=== PATIENT | female | born 1945 | race Caucasian/White ===

== ENCOUNTER 2017-08-20 21:56 | Emergency (ER) | payer OTHER ==
[~2017-08-20] VITALS: Ht 157.5 cm; Wt 49.9 kg
[2017-08-21] MEDS ORDERED: SODIUM CHLORIDE 0.9% 1,000 ML IV ONE (01:30)
[2017-08-21 02:17] LABS: Basophils # (auto) 0 uL; Eosinophils # (auto) 0 uL; Hematocrit 41.2 % (36.0-46.0); Hemoglobin 14.3 g/dL (12.2-16.2); Lymphocytes # (auto) 0.3 uL; Lymphocytes % (auto) 2.2 % (10.0-50.0); Mean Corpuscular Hemoglobin 33.8 pg (28.0-32.0); Mean Corpuscular Hgb Conc. 34.9 g/dL (32.0-36.0); Mean Corpuscular Volume 97.1 fL (80.0-100.0); Monocytes # (auto) 0.9 uL; Monocytes % (auto) 6.6 % (0.0-12.0); Neutrophils # (auto) 12.9 uL; Neutrophils % (auto) 91.2 % (37.0-80.0); Platelet Count (auto) 243 10^3/uL (140-450); Red Blood Cells 4.24 10^6/uL (4.0-5.20); Red Cell Distribution Width 13.5 % (11.8-14.3); White Blood Cell 14.1 10^3/uL (4.4-10.8)
[2017-08-21 02:41] LABS: Albumin 2.7 g/dL (3.4-5.0); Calcium 8.8 mg/dL (8.5-10.1); Potassium 3.4 mmol/L (3.5-5.1)
[2017-08-21 02:43] LABS: BUN/Creatinine Ratio 21.3
[2017-08-21 02:46] LABS: Bilirubin, Total 0.6 mg/dL (0.2-1.0); Total Protein 6.5 g/dL (6.4-8.2)
[2017-08-21] MEDS ORDERED: MORPHINE SULFATE 4 MG/ML SYR/VIAL IV ONE (03:45)
[2017-08-21] MEDS ORDERED: ONDANSETRON HCL 4 MG/2 ML VIAL IV ONE (03:45)
[2017-08-21 04:45] VITALS: BP 130/65
[2017-08-21] MEDS ORDERED: HYDROcodone-ACET 10/325MG TAB PO ONE (05:00)
== END 2017-08-21 05:27 | disposition home or self-care (01) ==
LOC: EDBD 21:56 → ER 22:02
DX: S22.080A Wedge compression fracture of T11-T12 vertebra, initial encounter for closed fracture (principal); J44.9 Chronic obstructive pulmonary disease, unspecified; I10 Essential (primary) hypertension; F17.210 Nicotine dependence, cigarettes, uncomplicated; W06.XXXA Fall from bed, initial encounter; Y93.89 Activity, other specified; Y99.8 Other external cause status; Y92.89 Other specified places as the place of occurrence of the external cause
CPT/HCPCS: 36415; 72125; 72128; 72131; 80053; 85025; 87804; 93005; 96361; 96374; 96375; 99285; J2270; J2405; J7030

== ENCOUNTER 2017-08-22 17:26 | Inpatient (IN) | payer OTHER ==
[~2017-08-22] VITALS: Ht 162.6 cm; Wt 55.1 kg
[2017-08-22 20:11] LABS: Hematocrit 38.2 % (36.0-46.0); Hemoglobin 13.3 g/dL (12.2-16.2); Mean Corpuscular Hemoglobin 33.9 pg (28.0-32.0); Mean Corpuscular Hgb Conc. 34.9 g/dL (32.0-36.0); Mean Corpuscular Volume 97.3 fL (80.0-100.0); Platelet Count (auto) 249 10^3/uL (140-450); Red Blood Cells 3.92 10^6/uL (4.0-5.20); White Blood Cell 14.3 10^3/uL (4.4-10.8)
[2017-08-22 20:16] LABS: Albumin 2.2 g/dL (3.4-5.0); Anion Gap 12 (5-15); Aspartate Aminotransferase 70 U/L (15-37); BUN/Creatinine Ratio 24.4; Band Neutrophils % (manual) 0; Basophils % (manual) 0 (0.0-2.0); Blast Cells 0; Blood Urea Nitrogen 39 mg/dL (7-18); Calcium 8.5 mg/dL (8.5-10.1); Carbon Dioxide 24 mmol/L (21-32); Chloride 85 mmol/L (98-107); Eosinophils % (manual) 0 (0-7); GFR African American 41 mL/min; GFR Non-African American 34 mL/min; Glucose 78 mg/dL (74-106); Magnesium 1.8 mg/dL (1.6-2.6); Myelocytes % 0; Potassium 3.4 mmol/L (3.5-5.1); Promyelocytes % 0; Reactive Lymphocytes 0; Sodium 121 mmol/L (136-145)
[2017-08-22 20:18] LABS: INR 1.02 (0.9-1.15); Partial Thromboplastin Time 35.7 sec (22.64-33.71); Prothrombin Time 11.1 sec (9.37-12.3)
[2017-08-22 20:28] LABS: Alanine Aminotransferase 36 U/L (13-56); Alkaline Phosphatase 64 U/L (45-117); Bilirubin, Total 0.7 mg/dL (0.2-1.0); Total Protein 6.1 g/dL (6.4-8.2)
[2017-08-22 20:42] LABS: Lymphocytes % (manual) 5 (10.0-50.0); Metamyelocytes % 1; Monocytes % (manual) 2 (0-12)
[2017-08-22] MEDS ORDERED: ACETAMINOPHEN/CODEINE#3 (300/30mg) TAB PO ONE (22:30)
[2017-08-22] MEDS ORDERED: hydrALAZINE HCL 20 MG/ML VL IV PRN (23:45)
[2017-08-22] MEDS ORDERED: NITROGLYCERIN 0.4 MG SL TAB SL PRN (23:45)
[2017-08-22] MEDS ORDERED: SODIUM CHLORIDE 0.9% 1,000 ML IV ONE (23:45)
[2017-08-22] MEDS ORDERED: MORPHINE SULFATE 4 MG/ML SYR/VIAL IV PRN ×2 (23:45)
[2017-08-22] MEDS ORDERED: ONDANSETRON HCL 4 MG/2 ML VIAL IV PRN (23:45)
[2017-08-23] VITALS (7 sets, daily range): BP systolic 85–116; BP diastolic 47–63
[2017-08-23 00:09] LABS: BUN/Creatinine Ratio 27.6; Calcium 8.4 mg/dL (8.5-10.1); Potassium 3.8 mmol/L (3.5-5.1)
[2017-08-23] MEDS ORDERED: ALBUTEROL SULF 2.5 MG/0.5ML(0.5%) NEB SOLN NEB ONE (00:15)
[2017-08-23] MEDS ORDERED: IPRATROPIUM BROM 0.5 MG/2.5ML INH SOL NEB ONE (00:15)
[2017-08-23] MEDS ORDERED: ENOXAPARIN SOD 60 MG/0.6 ML SYRINGE SC ONE (00:30)
[2017-08-23] MEDS ORDERED: LEVOFLOXACIN 500MG 100 ML IV ONE ×2 (01:41→02:15)
[2017-08-23] MEDS: LEVOFLOXACIN 500MG 100 ML IV ONE ×2 (01:41→01:59)
[2017-08-23 02:09] LABS: Urine Bacteria MANY /hpf (None Seen); Urine Blood 1+ /uL (Negative); Urine Hyaline Cast MOD /lpf (0 - 2); Urine Mucus FEW (None Seen); Urine Specific Gravity 1.018 (1.001-1.035); Urine WBC 13 /hpf (0 - 5)
[2017-08-23 02:16] LABS: Creatinine, Urine 170 mg/dL (30.0-125.0); Sodium Urine 10 mmol/L (40-220)
[2017-08-23] MEDS ORDERED: ATOR40TA52 PO (04:31)
[2017-08-23] MEDS ORDERED: AMLO10TA2 PO (04:31)
[2017-08-23] MEDS ORDERED: LISI40TA PO (04:31)
[2017-08-23] MEDS ORDERED: HYDR25TA4 PO (04:31)
[2017-08-23] MEDS ORDERED: FLUO-125 PO (04:31)
[2017-08-23 05:52] LABS: Hematocrit 38.5 % (36.0-46.0); Hemoglobin 13.3 g/dL (12.2-16.2); Mean Corpuscular Hgb Conc. 34.7 g/dL (32.0-36.0); Mean Corpuscular Volume 98.2 fL (80.0-100.0); Platelet Count (auto) 254 10^3/uL (140-450); Red Blood Cells 3.92 10^6/uL (4.0-5.20); Red Cell Distribution Width 13.8 % (11.8-14.3); White Blood Cell 16.6 10^3/uL (4.4-10.8)
[2017-08-23 05:58] LABS: BUN/Creatinine Ratio 31.1; Calcium 7.9 mg/dL (8.5-10.1); Potassium 3.1 mmol/L (3.5-5.1)
[2017-08-23 06:14] LABS: Basophils % (manual) 0 (0.0-2.0); Blast Cells 0; Metamyelocytes % 0; Myelocytes % 0; Reactive Lymphocytes 0
[2017-08-23] MEDS ORDERED: ACETAMINOPHEN 325 MG TAB PO PRN (06:15)
[2017-08-23 06:53] LABS: Band Neutrophils % (manual) 20; Eosinophils % (manual) 1 (0-7); Lymphocytes % (manual) 2 (10.0-50.0); Monocytes % (manual) 2 (0-12); Promyelocytes % 1
[2017-08-23] MEDS: ALBUTEROL SULF 2.5 MG/0.5ML(0.5%) NEB SOLN NEB PRN ×2 (09:19→13:37)
[2017-08-23] MEDS: IPRATROPIUM BROM 0.5 MG/2.5ML INH SOL NEB PRN ×2 (09:19→13:37)
[2017-08-23] MEDS ORDERED: ENOXAPARIN SOD 30 MG/0.3 ML SYRINGE SC SCH ×3 (10:00→22:00)
[2017-08-23] MEDS ORDERED: ENOXAPARIN SOD 40 MG/0.4 ML SYRINGE SC SCH (10:00)
[2017-08-23 10:03] LABS: BUN/Creatinine Ratio 33.1; Calcium 7.8 mg/dL (8.5-10.1); Potassium 3.2 mmol/L (3.5-5.1)
[2017-08-23] MEDS ORDERED: VANCOMYCIN PER PHARMACY 0 MG IV SCH (12:00)
[2017-08-23] MEDS ORDERED: LORazepam 2MG/ML-1ML VIAL IV ONE (12:00)
[2017-08-23] MEDS ORDERED: HEPARIN SODIUM (PORCINE) 5000 UNITS/ML 1ML VIAL IV ONE ×2 (12:00→18:00)
[2017-08-23] MEDS ORDERED: HEPARIN DRIP/D5W 100UNITS/ML 250 ML IV SCH ×2 (12:05→18:00)
[2017-08-23 12:32] LABS: Hematocrit 38.6 % (36.0-46.0); Hemoglobin 13.3 g/dL (12.2-16.2); Mean Corpuscular Hemoglobin 33.8 pg (28.0-32.0); Mean Corpuscular Hgb Conc. 34.4 g/dL (32.0-36.0); Mean Corpuscular Volume 98.2 fL (80.0-100.0); Platelet Count (auto) 245 10^3/uL (140-450); Red Blood Cells 3.93 10^6/uL (4.0-5.20); Red Cell Distribution Width 14.1 % (11.8-14.3)
[2017-08-23 12:41] LABS: Basophils % (manual) 0 (0.0-2.0); Blast Cells 0; Metamyelocytes % 0; Myelocytes % 0; Promyelocytes % 0; Reactive Lymphocytes 0
[2017-08-23 12:48] LABS: INR 1.02 (0.9-1.15); Partial Thromboplastin Time 41.3 sec (22.64-33.71); Prothrombin Time 11.1 sec (9.37-12.3)
[2017-08-23 12:55] LABS: BUN/Creatinine Ratio 34.1; Potassium 3.3 mmol/L (3.5-5.1)
[2017-08-23] MEDS: VANCOMYCIN 750 MG in D5W 5% 250 ML IV SCH (13:10)
[2017-08-23 13:47] LABS: Band Neutrophils % (manual) 9; Eosinophils % (manual) 1 (0-7); Lymphocytes % (manual) 2 (10.0-50.0); Monocytes % (manual) 2 (0-12)
[2017-08-23] MEDS: HYDROcodone-ACET 5/325MG TAB PO PRN (15:53)
[2017-08-23] MEDS ORDERED: LORazepam 2MG/ML-1ML VIAL IV PRN (17:45)
[2017-08-23] MEDS ORDERED: ACETTAB85 PO (19:05)
[2017-08-23] MEDS ORDERED: ALEN70TA55 PO (19:05)
[2017-08-23] MEDS ORDERED: METO-159 PO (19:05)
[2017-08-23] MEDS ORDERED: SODIUM CHLORIDE 0.9% 1,000 ML IV ONE (19:30)
[2017-08-23] MEDS: SODIUM CHLORIDE 0.9% 1,000 ML IV SCH (21:14)
[2017-08-23] MEDS: HEPARIN SODIUM (PORCINE) 5000 UNITS/ML 1ML VIAL SC SCH (21:28)
[2017-08-23] MEDS ORDERED: LEVOFLOXACIN 250MG 50 ML IV SCH (22:00)
[2017-08-23] MEDS: POTASSIUM CHL 20MEQ/100ML 100 ML IV SCH (22:48)
[2017-08-24] MEDS: POTASSIUM CHL 20MEQ/100ML 100 ML IV SCH (00:38)
[2017-08-24] MEDS: HYDROcodone-ACET 5/325MG TAB PO PRN ×4 (02:31→17:32)
[2017-08-24] MEDS: SODIUM CHLORIDE 0.9% 1,000 ML IV SCH ×2 (05:16→16:20)
[2017-08-24 06:00] VITALS: BP 110/58
[2017-08-24 06:27] LABS: Basophils # (auto) 0 uL; Eosinophils # (auto) 0.1 uL; Eosinophils % (auto) 0.3 % (0.0-7.0); Hematocrit 33.6 % (36.0-46.0); Hemoglobin 11.7 g/dL (12.2-16.2); Lymphocytes # (auto) 0.3 uL; Lymphocytes % (auto) 1.3 % (10.0-50.0); Mean Corpuscular Hemoglobin 33.8 pg (28.0-32.0); Mean Corpuscular Hgb Conc. 34.8 g/dL (32.0-36.0); Mean Corpuscular Volume 97.1 fL (80.0-100.0); Monocytes # (auto) 0.5 uL; Monocytes % (auto) 2.5 % (0.0-12.0); Neutrophils # (auto) 18.5 uL; Neutrophils % (auto) 95.9 % (37.0-80.0); Platelet Count (auto) 244 10^3/uL (140-450); Red Blood Cells 3.46 10^6/uL (4.0-5.20); Red Cell Distribution Width 14.2 % (11.8-14.3); White Blood Cell 19.3 10^3/uL (4.4-10.8)
[2017-08-24] MEDS ORDERED: LIDOCAINE 2%HCL (LOCAL ANESTH.) INJ 20ML MDV ONE (06:39)
[2017-08-24 06:40] LABS: Albumin 1.6 g/dL (3.4-5.0); Calcium 7.5 mg/dL (8.5-10.1); Potassium 3.5 mmol/L (3.5-5.1)
[2017-08-24 06:43] LABS: BUN/Creatinine Ratio 39.4
[2017-08-24 06:45] LABS: Bilirubin, Total 0.5 mg/dL (0.2-1.0); Total Protein 5.2 g/dL (6.4-8.2)
[2017-08-24] MEDS ORDERED: fentaNYL CITRATE 100 MCG/2 ML VL ONE (08:36)
[2017-08-24] MEDS ORDERED: MIDAZOLAM HCL 1MG/1ML-2 ML VIAL ONE (08:36)
[2017-08-24 09:00] VITALS: BP 113/58
[2017-08-24] MEDS ORDERED: ENOXAPARIN SOD 30 MG/0.3 ML SYRINGE SC SCH (10:00)
[2017-08-24] MEDS ORDERED: ENOXAPARIN SOD 40 MG/0.4 ML SYRINGE SC SCH (10:00)
[2017-08-24] MEDS: LEVOFLOXACIN 750MG 150 ML IV SCH (10:03)
[2017-08-24] MEDS: IPRATROPIUM BROM 0.5 MG/2.5ML INH SOL NEB PRN ×2 (10:09→19:38)
[2017-08-24] MEDS: ALBUTEROL SULF 2.5 MG/0.5ML(0.5%) NEB SOLN NEB PRN ×2 (10:09→19:38)
[2017-08-24] MEDS: HEPARIN SODIUM (PORCINE) 5000 UNITS/ML 1ML VIAL SC SCH ×2 (10:14→21:20)
[2017-08-24 11:32] LABS: Folate (Folic Acid) 7.05 ng/mL (5.38-24)
[2017-08-24] MEDS ORDERED: GADOPENTETATE DIMEGLUMINE (10MMOL/20 ML) VIAL IV ONE (14:08)
[2017-08-24] MEDS: VANCOMYCIN 750 MG in D5W 5% 250 ML IV SCH (16:20)
[2017-08-24 17:57] VITALS: BP 129/73
[2017-08-24 22:00] VITALS: BP 144/73
[2017-08-25] MEDS: SODIUM CHLORIDE 0.9% 1,000 ML IV SCH ×3 (01:16→21:56)
[2017-08-25] MEDS: HYDROcodone-ACET 5/325MG TAB PO PRN ×4 (02:28→21:57)
[2017-08-25 05:19] VITALS: BP 146/74
[2017-08-25 05:56] LABS: Hematocrit 33.3 % (36.0-46.0); Hemoglobin 11.6 g/dL (12.2-16.2); Mean Corpuscular Hemoglobin 33.9 pg (28.0-32.0); Mean Corpuscular Hgb Conc. 34.8 g/dL (32.0-36.0); Mean Corpuscular Volume 97.3 fL (80.0-100.0); Platelet Count (auto) 238 10^3/uL (140-450); Red Blood Cells 3.43 10^6/uL (4.0-5.20); Red Cell Distribution Width 14.4 % (11.8-14.3); White Blood Cell 17.3 10^3/uL (4.4-10.8)
[2017-08-25 06:17] LABS: Basophils % (manual) 0 (0.0-2.0); Blast Cells 0; Metamyelocytes % 0; Myelocytes % 0; Promyelocytes % 0; Reactive Lymphocytes 0
[2017-08-25 08:00] VITALS: BP 122/62
[2017-08-25] MEDS: IPRATROPIUM BROM 0.5 MG/2.5ML INH SOL NEB PRN (09:17)
[2017-08-25] MEDS: ALBUTEROL SULF 2.5 MG/0.5ML(0.5%) NEB SOLN NEB PRN (09:17)
[2017-08-25] MEDS: LEVOFLOXACIN 750MG 150 ML IV SCH (10:14)
[2017-08-25] MEDS: PRO-STAT 64 30ML PO SCH ×2 (10:15→21:51)
[2017-08-25] MEDS: ASCORBIC ACID 500 MG TAB PO SCH ×2 (10:15→21:50)
[2017-08-25] MEDS: MULTIPLE VITAMINS W/ MINERALS TAB PO SCH (10:15)
[2017-08-25] MEDS: HEPARIN SODIUM (PORCINE) 5000 UNITS/ML 1ML VIAL SC SCH ×2 (10:16→21:50)
[2017-08-25 10:46] LABS: Band Neutrophils % (manual) 15; Eosinophils % (manual) 1 (0-7); Lymphocytes % (manual) 3 (10.0-50.0); Monocytes % (manual) 2 (0-12)
[2017-08-25 12:00] VITALS: BP 118/65
[2017-08-25 12:04] LABS: BUN/Creatinine Ratio 31.9; Calcium 8.1 mg/dL (8.5-10.1)
[2017-08-25] MEDS ORDERED: MIDAZOLAM HCL 1MG/1ML-2 ML VIAL ONE (13:41)
[2017-08-25] MEDS ORDERED: fentaNYL CITRATE 100 MCG/2 ML VL ONE (13:42)
[2017-08-25] MEDS: BOOST PLUS 8 ounce PO SCH ×2 (14:00→21:51)
[2017-08-25] MEDS ORDERED: POTASSIUM CHL 20 Meq TABLET PO ONE (14:30)
[2017-08-25] MEDS: VANCOMYCIN 750 MG in D5W 5% 250 ML IV SCH (15:48)
[2017-08-25 17:00] VITALS: BP 122/69
[2017-08-25 22:00] VITALS: BP 127/76
[2017-08-26] MEDS: HYDROcodone-ACET 5/325MG TAB PO PRN ×2 (03:34→10:45)
[2017-08-26 03:47] VITALS: BP 122/69
[2017-08-26 05:00] VITALS: BP 133/70
[2017-08-26 06:58] LABS: Hematocrit 34.2 % (36.0-46.0); Hemoglobin 11.8 g/dL (12.2-16.2); Mean Corpuscular Hemoglobin 33.9 pg (28.0-32.0); Mean Corpuscular Hgb Conc. 34.4 g/dL (32.0-36.0); Mean Corpuscular Volume 98.5 fL (80.0-100.0); Platelet Count (auto) 221 10^3/uL (140-450); Red Blood Cells 3.47 10^6/uL (4.0-5.20); Red Cell Distribution Width 14.6 % (11.8-14.3); White Blood Cell 12.9 10^3/uL (4.4-10.8)
[2017-08-26] MEDS: SODIUM CHLORIDE 0.9% 1,000 ML IV SCH (07:30)
[2017-08-26 07:34] LABS: BUN/Creatinine Ratio 34.6; Calcium 8.1 mg/dL (8.5-10.1); Potassium 3.6 mmol/L (3.5-5.1)
[2017-08-26 07:40] LABS: Basophils % (manual) 0 (0.0-2.0); Blast Cells 0; Eosinophils % (manual) 0 (0-7); Metamyelocytes % 0; Myelocytes % 0; Promyelocytes % 0; Reactive Lymphocytes 0
[2017-08-26 07:58] LABS: Band Neutrophils % (manual) 2; Lymphocytes % (manual) 4 (10.0-50.0); Monocytes % (manual) 11 (0-12)
[2017-08-26 08:00] VITALS: BP 129/69
[2017-08-26] MEDS: BOOST PLUS 8 ounce PO SCH ×2 (08:50→14:16)
[2017-08-26] MEDS: PRO-STAT 64 30ML PO SCH (10:00)
[2017-08-26] MEDS: MULTIPLE VITAMINS W/ MINERALS TAB PO SCH (11:21)
[2017-08-26] MEDS: LEVOFLOXACIN 750MG 150 ML IV SCH (11:21)
[2017-08-26] MEDS: HEPARIN SODIUM (PORCINE) 5000 UNITS/ML 1ML VIAL SC SCH (11:22)
[2017-08-26 11:46] VITALS: BP 129/69
[2017-08-26 13:00] VITALS: BP 117/66
[2017-08-26] MEDS: ASCORBIC ACID 500 MG TAB PO SCH (13:25)
[2017-08-26] MEDS ORDERED: VANCOMYCIN 1GM/250ML 250 ML IV SCH (15:00)
[2017-08-26 16:54] VITALS: BP 145/73
== END 2017-08-26 17:45 | disposition hospice, home (50) | DRG 180 ==
LOC: EDBD 17:26 → ER 17:26 → OVERFLOW 17:27 → WEST WING 08-23 02:15
PROVIDERS: ADMIT Hospitalist; ATTEND Hospitalist
PROC: 0W9930Z Drainage of Right Pleural Cavity with Drainage Device, Percutaneous Approach (ICD-10-PCS; principal; 2017-08-25)
PROC: 0BBF3ZX Excision of Right Lower Lung Lobe, Percutaneous Approach, Diagnostic (ICD-10-PCS; 2017-08-25)
DX: C34.31 Malignant neoplasm of lower lobe, right bronchus or lung (principal); J96.21 Acute and chronic respiratory failure with hypoxia; E46 Unspecified protein-calorie malnutrition; N17.9 Acute kidney failure, unspecified; G82.20 Paraplegia, unspecified; L03.115 Cellulitis of right lower limb; E87.1 Hypo-osmolality and hyponatremia; J93.9 Pneumothorax, unspecified; M48.54XA Collapsed vertebra, not elsewhere classified, thoracic region, initial encounter for fracture; L03.116 Cellulitis of left lower limb; W19.XXXA Unspecified fall, initial encounter; E78.5 Hyperlipidemia, unspecified; E86.0 Dehydration; F02.80 Dementia in other diseases classified elsewhere, unspecified severity, without behavioral disturbance, psychotic disturbance, mood disturbance, and anxiety; G30.9 Alzheimer's disease, unspecified; F17.210 Nicotine dependence, cigarettes, uncomplicated; N39.41 Urge incontinence; M43.17 Spondylolisthesis, lumbosacral region; M48.061 Spinal stenosis, lumbar region without neurogenic claudication; G89.29 Other chronic pain; I10 Essential (primary) hypertension; J44.9 Chronic obstructive pulmonary disease, unspecified; I25.10 Atherosclerotic heart disease of native coronary artery without angina pectoris; Z90.710 Acquired absence of both cervix and uterus; Z79.899 Other long term (current) drug therapy; Z81.8 Family history of other mental and behavioral disorders; Z82.0 Family history of epilepsy and other diseases of the nervous system; Z68.20 Body mass index [BMI] 20.0-20.9, adult; Y93.89 Activity, other specified; Y92.89 Other specified places as the place of occurrence of the external cause; Y99.8 Other external cause status
CPT/HCPCS: 10022; 32405; 32557; 36415; 36600; 70553; 71045; 71250; 72148; 73502; 77012; 78582; 80048; 80053; 80202; 81001; 82570; 82607; 82746; 82805; 83605; 83735; 83880; 83930; 84146; 84300; 84443; 84484; 85007; 85025; 85027; 85379; 85610; 85730; 87040; 87077; 87086; 87186; 87205; 93005; 93970; 94640; 94761; 95819; 96372; 96374; A4223; C1729; J1956; J2250; J3480; J7060

== ENCOUNTER 2022-07-11 11:56 | Observation (INO) | payer OTHER ==
[~2022-07-11] VITALS: Ht 149.9 cm; Wt 50.0 kg
[~2022-07-11 11:56] MED LIST: ACET-1603 PO; ALEN70TA74 PO; ATOR40TA52 PO; FLUO-125 PO; METO-159 PO
[2022-07-11] MEDS ORDERED: SODIUM CHLORIDE 0.9% 1,000 ML IV ONE (12:30)
[2022-07-11] MEDS ORDERED: methylPREDNISolone SOD SUCC 125 MG/2 ML VL IV ONE (12:30)
[2022-07-11] MEDS ORDERED: IPRATROPIUM BROM 0.5 MG/2.5ML INH SOL NEB ONE ×3 (12:30→21:15)
[2022-07-11] MEDS ORDERED: ALBUTEROL SULF 2.5 MG/0.5ML(0.5%) NEB SOLN NEB ONE ×3 (12:30→21:15)
[2022-07-11 13:28] LABS: Albumin 3.1 g/dL (3.4-5.0); Magnesium 2.1 mg/dL (1.6-2.6); Potassium 4.1 mmol/L (3.5-5.1)
[2022-07-11 13:32] LABS: BUN/Creatinine Ratio 16.3; Bilirubin, Total 0.8 mg/dL (0.2-1.0); Total Protein 7.1 g/dL (6.4-8.2)
[2022-07-11 13:43] LABS: Basophils # (auto) 0 10 ^3/uL (0-0.2); Basophils % (auto) 0.3 % (0.0-2.0); Eosinophils # (auto) 0 10 ^3/uL (0-0.8); Eosinophils % (auto) 0.1 % (0.0-7.0); Lymphocytes # (auto) 1.2 10 ^3/uL (0.4-5.4)
[2022-07-11 13:45] LABS: Hematocrit 40.8 % (36.0-46.0); Hemoglobin 14.4 g/dL (12.2-16.2); Lymphocytes % (auto) 12.1 % (10.0-50.0); Mean Corpuscular Hemoglobin 35.2 pg (28.0-32.0); Mean Corpuscular Hgb Conc. 35.3 g/dL (32.0-36.0); Mean Corpuscular Volume 99.9 fL (80.0-100.0); Monocytes # (auto) 1.1 10 ^3/uL (0-1.3); Monocytes % (auto) 10.5 % (0.0-12.0); Neutrophils # (auto) 7.7 10 ^3/uL (1.6-8.6); Red Blood Cells 4.08 10^6/uL (4.0-5.20); White Blood Cell 10.1 10^3/uL (4.4-10.8)
[2022-07-11 15:13] LABS: Urine Amorphous Crystal FEW /hpf (None Seen); Urine Bacteria NONE SEEN /hpf (None Seen); Urine Blood Negative /uL (Negative); Urine Hyaline Cast MOD /lpf (0 - 2); Urine Specific Gravity 1.022 (1.001-1.035); Urine WBC 13 /hpf (0 - 5)
[2022-07-11] MEDS ORDERED: cefTRIAXone 1GM/50ML D5W 50 ML IV ONE (16:15)
[2022-07-11] MEDS ORDERED: ALBUTEROL MEDNEB 2.5 mg/3ml NEB ONE (21:22)
[2022-07-12] MEDS ORDERED: IPRATROPIUM BROM 0.5 MG/2.5ML INH SOL NEB PRN (01:45)
[2022-07-12] MEDS ORDERED: MORPHINE SULFATE INJ 2 MG/ml SYRG IV PRN ×2 (01:45)
[2022-07-12] MEDS ORDERED: NITROGLYCERIN 0.4 MG SL TAB SL PRN (01:45)
[2022-07-12] MEDS ORDERED: ONDANSETRON HCL 4 MG/2 ML VIAL IV PRN (01:45)
[2022-07-12 02:35] VITALS: BP 119/62
[2022-07-12] MEDS: methylPREDNISolone SOD SUCC 125 MG/2 ML VL IV SCH ×3 (02:43→14:43)
[2022-07-12] MEDS ORDERED: levoFLOXacin 500MG 100 ML IV ONE (03:00)
[2022-07-12 06:22] LABS: Basophils # (auto) 0 10 ^3/uL (0-0.2); Eosinophils # (auto) 0 10 ^3/uL (0-0.8); Lymphocytes # (auto) 0.4 10 ^3/uL (0.4-5.4); Monocytes # (auto) 0.4 10 ^3/uL (0-1.3); Neutrophils # (auto) 5.3 10 ^3/uL (1.6-8.6)
[2022-07-12 06:24] LABS: Calcium 8.7 mg/dL (8.5-10.1); Potassium 3.5 mmol/L (3.5-5.1)
[2022-07-12 06:25] LABS: Hemoglobin 12.9 g/dL (12.2-16.2); Lymphocytes % (auto) 6.5 % (10.0-50.0); Mean Corpuscular Hemoglobin 34.7 pg (28.0-32.0); Mean Corpuscular Hgb Conc. 34.8 g/dL (32.0-36.0); Mean Corpuscular Volume 99.8 fL (80.0-100.0); Monocytes % (auto) 5.8 % (0.0-12.0); Neutrophils % (auto) 87.7 % (37.0-80.0); Red Blood Cells 3.71 10^6/uL (4.0-5.20); Red Cell Distribution Width 13.7 % (11.8-14.3)
[2022-07-12] MEDS ORDERED: LEVO500T31 PO (07:07)
[2022-07-12] MEDS ORDERED: METH4PAK PO (07:07)
[2022-07-12] MEDS ORDERED: ALBU108A5 IN (07:07)
[2022-07-12] MEDS ORDERED: ENOXAPARIN SOD 30 MG/0.3 ML SYRINGE SC SCH (10:00)
[2022-07-12] MEDS ORDERED: ALBU0.084 NEB (10:52)
[2022-07-12 14:00] VITALS: BP 146/87
[2022-07-13] MEDS ORDERED: levoFLOXacin 250MG 50 ML IV SCH (10:00)
== END 2022-07-12 17:15 | disposition home or self-care (01) ==
LOC: ER 11:56 → EDBD 11:56 → TELE 17:15
PROVIDERS: ADMIT Hospitalist; ATTEND Internal Medicine
DX: J18.9 Pneumonia, unspecified organism (principal); Z20.822 Contact with and (suspected) exposure to COVID-19; J44.1 Chronic obstructive pulmonary disease with (acute) exacerbation; E44.1 Mild protein-calorie malnutrition; F32.A Depression, unspecified; I12.9 Hypertensive chronic kidney disease with stage 1 through stage 4 chronic kidney disease, or unspecified chronic kidney disease; N18.30 Chronic kidney disease, stage 3 unspecified; C34.90 Malignant neoplasm of unspecified part of unspecified bronchus or lung; E78.5 Hyperlipidemia, unspecified; Z85.118 Personal history of other malignant neoplasm of bronchus and lung; Z79.899 Other long term (current) drug therapy; Z98.890 Other specified postprocedural states; Z90.710 Acquired absence of both cervix and uterus; Z87.891 Personal history of nicotine dependence; Z68.22 Body mass index [BMI] 22.0-22.9, adult
CPT/HCPCS: 36415; 36600; 71046; 80048; 80053; 81001; 82805; 83735; 84484; 85025; 87040; 87426; 87804; 93005; 94640; 96361; 96365; 96366; 96367; 96372; 96375; 96376; 99285; G0378; J0696; J1650; J1956; J2930; J7644

== ENCOUNTER 2023-04-20 18:09 | Emergency (ER) | payer OTHER ==
[~2023-04-20] VITALS: Ht 152.4 cm; Wt 130.0 kg
[~2023-04-20 18:09] MED LIST changes: +ALBU0.084 NEB; +ALBU108A5 IN; +LEVO500T31 PO; +METH4PAK PO
[2023-04-20 19:07] LABS: Basophils # (auto) 0.1 10 ^3/uL (0-0.2); Basophils % (auto) 0.8 % (0.0-2.0); Eosinophils # (auto) 0.2 10 ^3/uL (0-0.8); Eosinophils % (auto) 2.1 % (0.0-7.0); Hematocrit 43.5 % (36.0-46.0); Hemoglobin 14.7 g/dL (12.2-16.2); Lymphocytes # (auto) 2.7 10 ^3/uL (0.4-5.4); Mean Corpuscular Hemoglobin 33.1 pg (28.0-32.0); Mean Corpuscular Hgb Conc. 33.7 g/dL (32.0-36.0); Mean Corpuscular Volume 98.1 fL (80.0-100.0); Monocytes # (auto) 0.9 10 ^3/uL (0-1.3); Monocytes % (auto) 8.4 % (0.0-12.0); Neutrophils % (auto) 63.7 % (37.0-80.0); Nucleated Red Blood Cells % 0.1 %; Red Blood Cells 4.43 10^6/uL (4.0-5.20); Red Cell Distribution Width 14.7 % (11.8-14.3)
[2023-04-20 19:37] LABS: Alanine Aminotransferase 13 U/L (7-40); Albumin 4.1 g/dL (3.2-4.8); Alkaline Phosphatase 89 U/L (46-116); Anion Gap 8 (5-15); Aspartate Aminotransferase 12 U/L (13-40); BUN/Creatinine Ratio 11.2 (10.0-20.0); Bilirubin, Total 0.6 mg/dL (0.2-1.0); Blood Urea Nitrogen 14 mg/dL (9-23); Calcium 9.3 mg/dL (8.5-10.1); Carbon Dioxide 23 mmol/L (20-30); Chloride 102 mmol/L (98-107); Glucose 92 mg/dL (74-106); Potassium 4.2 mmol/L (3.5-5.1); Sodium 133 mmol/L (136-145); Total Protein 6.6 g/dL (5.7-8.2)
[2023-04-20 19:56] LABS: Magnesium 1.9 mg/dL (1.6-2.6)
[2023-04-20 19:57] VITALS: BP 135/92; TEMP 98.5
[2023-04-20 19:59] VITALS: PULSE 84; RESP 20; O2SAT 97
== END 2023-04-20 22:35 | disposition left against medical advice (07) ==
LOC: EDBD 18:09 → ER 18:09
DX: I16.0 Hypertensive urgency (principal); R93.1 Abnormal findings on diagnostic imaging of heart and coronary circulation; J44.9 Chronic obstructive pulmonary disease, unspecified; F32.9 Major depressive disorder, single episode, unspecified; E78.5 Hyperlipidemia, unspecified; F10.90 Alcohol use, unspecified, uncomplicated; Z85.9 Personal history of malignant neoplasm, unspecified; Z90.710 Acquired absence of both cervix and uterus; Z87.891 Personal history of nicotine dependence; Z88.0 Allergy status to penicillin; Z79.1 Long term (current) use of non-steroidal anti-inflammatories (NSAID); Z79.899 Other long term (current) drug therapy; Y90.0 Blood alcohol level of less than 20 mg/100 ml
CPT/HCPCS: 36415; 80053; 83735; 84484; 85025; 93005

== ENCOUNTER 2024-03-08 09:39 | Inpatient (IN) | payer OTHER ==
[~2024-03-08] VITALS: Ht 157.5 cm; Wt 67.0 kg
[2024-03-08 09:40] VITALS: PULSE 30; RESP 6; O2SAT 98
[2024-03-08] MEDS: MIDAZOLAM HCL 2MG/2ML 2ml VIAL (1mg/ml) IV ONE (09:42)
[2024-03-08] MEDS: ETOMIDATE (2MG/ML) 20ML VIAL IV ONE ×2 (09:43→09:44)
[2024-03-08] MEDS: MIDAZOLAM HCL 2MG/2ML 2ml VIAL (1mg/ml) ONE (09:45)
[2024-03-08] MEDS: MIDAZOLAM DRIP 50 mg/50mL 50 ML IV SCH (10:00)
[2024-03-08] MEDS: PROPOFOL 100 ML IV ONE (10:03)
[2024-03-08] MEDS: DOPamine 1600MCG/ML D5W 250 ML IV ONE ×2 (10:03→10:05)
[2024-03-08] MEDS: NOREPINEPHRINE 8 MG/250ML KIT 250 ML IV SCH (10:15)
[2024-03-08] MEDS: MIDAZOLAM DRIP 50 mg/50mL 50 ML IV ONE (10:23)
[2024-03-08] MEDS: NOREPINEPHRINE 8 MG/250ML KIT 250 ML IV ONE (10:23)
[2024-03-08] MEDS: PROPOFOL 100 ML IV SCH (10:24)
[2024-03-08 11:28] LABS: Platelet Count (auto) 144 10^3/uL (140-450)
[2024-03-08 11:30] LABS: Hematocrit 35.3 % (36.0-46.0); Hemoglobin 11.1 g/dL (12.2-16.2); Mean Corpuscular Hgb Conc. 31.5 g/dL (32.0-36.0); Mean Corpuscular Volume 104.8 fL (80.0-100.0); Red Blood Cells 3.37 10^6/uL (4.0-5.20); White Blood Cell 17.2 10^3/uL (4.4-10.8)
[2024-03-08] MEDS: ISOPROTERENOL HCL INJECTION 1 MG in D5W 5% 250 ML IV SCH ×2 (11:35→13:45)
[2024-03-08 11:36] LABS: Basophils % (manual) 0 (0.0-2.0); Blast Cells 0; Metamyelocytes % 0; Promyelocytes % 0; Reactive Lymphocytes 0
[2024-03-08 12:03] LABS: Band Neutrophils % (manual) 4; Eosinophils % (manual) 1 (0-7); Lymphocytes % (manual) 32 (10.0-50.0); Monocytes % (manual) 6 (0-12); Myelocytes % 2; Platelet Estimate Adequate
[2024-03-08 12:15] LABS: Base Excess -16.2 mmol/L (-2.0-3.0)
[2024-03-08] MEDS: cefTRIAXone 1GM/50ML D5W 50 ML IV ONE (12:38)
[2024-03-08] MEDS: SODIUM BICARB 8.4% 50Meq/50ml SYR Vial IV ONE (12:38)
[2024-03-08] MEDS: AZITHROMYCIN 500MG/ 250ML 250 ML IV ONE (12:39)
[2024-03-08] MEDS: SODIUM CHLORIDE 0.9% 1,000 ML IV ONE ×2 (12:39→23:56)
[2024-03-08 12:45] LABS: Chloride 111 mmol/L (98-107); Sodium 137 mmol/L (136-145)
[2024-03-08 12:47] LABS: Anion Gap 13 (5-15); Carbon Dioxide 13 mmol/L (20-30)
[2024-03-08 12:48] LABS: Calcium 7.5 mg/dL (8.7-10.4)
[2024-03-08 12:51] LABS: Potassium 5.5 mmol/L (3.5-5.1)
[2024-03-08 12:53] LABS: Alkaline Phosphatase 114 U/L (46-116); Glucose 103 mg/dL (74-106)
[2024-03-08 12:55] LABS: Albumin 2.9 g/dL (3.2-4.8); Aspartate Aminotransferase 759 U/L (13-40); Bilirubin, Total 0.7 mg/dL (0.2-1.0); Total Protein 4.9 g/dL (5.7-8.2)
[2024-03-08 13:54] LABS: Blood Urea Nitrogen 15 mg/dL (9-23)
[2024-03-08 13:55] LABS: Alanine Aminotransferase 474 U/L (7-40)
[2024-03-08 14:39] LABS: Base Excess -8.2 mmol/L (-2.0-3.0)
[2024-03-08] MEDS: fentaNYL Drip 2500mCg/250mlNS 250 ML IV SCH (16:29)
[2024-03-08 18:37] LABS: Urine Amorphous Crystal FEW /hpf (None Seen); Urine Bacteria FEW /hpf (None Seen); Urine Blood 3+ /uL (Negative); Urine Clarity Turbid (Clear); Urine Color Colorless (Yellow); Urine Mucus FEW (None Seen); Urine Protein, UAD 1+ (Negative); Urine Specific Gravity 1.009 (1.001-1.035); Urine Urobilinogen Normal (Negative); Urine WBC 31 /hpf (0 - 5)
[2024-03-08 21:00] VITALS: PULSE 55; RESP 18; O2SAT 98
[2024-03-08] MEDS ORDERED: VANCOMYCIN 1GM/200ML 200 ML IV ONE (23:00)
[2024-03-08 23:10] VITALS: PULSE 66; RESP 20; O2SAT 96
[2024-03-08] MEDS ORDERED: MORPHINE SULFATE INJ 2 MG/ml SYRG IV PRN ×2 (23:15)
[2024-03-08] MEDS ORDERED: VANCOMYCIN PER PHARMACY 0 MG IV SCH (23:15)
[2024-03-08] MEDS ORDERED: NITROGLYCERIN 0.4 MG SL TAB SL PRN (23:15)
[2024-03-08] MEDS ORDERED: ONDANSETRON HCL 4 MG/2 ML VIAL IV PRN (23:15)
[2024-03-08] MEDS: MEROPENEM 500MG IVPB 50 ML IV SCH (23:30)
[2024-03-08 23:39] LABS: INR 1.3 (0.9-1.15); Partial Thromboplastin Time 29.6 SEC (24.5-34.5); Prothrombin Time 13.5 sec (9.3-11.8)
[2024-03-08] MEDS: SODIUM CHLORIDE 0.9% 1,000 ML IV SCH (23:56)
[2024-03-08 23:59] LABS: Alanine Aminotransferase 521 U/L (7-40); Albumin 3.2 g/dL (3.2-4.8); Alkaline Phosphatase 108 U/L (46-116); Anion Gap 8 (5-15); BUN/Creatinine Ratio 9.6 (10.0-20.0); Blood Urea Nitrogen 19 mg/dL (9-23); Calcium 7.1 mg/dL (8.7-10.4); Carbon Dioxide 22 mmol/L (20-30); Chloride 107 mmol/L (98-107); Glucose 99 mg/dL (74-106); Potassium 4.7 mmol/L (3.5-5.1); Sodium 137 mmol/L (136-145)
[2024-03-09] VITALS (89 sets, daily range): BP systolic 85–141; BP diastolic 43–76; PULSE 62–97; RESP 10–31; TEMP 96.4–99.9; O2SAT 90–100
[2024-03-09] LABS: Bilirubin, Total 0.3 mg/dL (0.2-1.0); Total Protein 5.1 g/dL (5.7-8.2)
[2024-03-09] MEDS: VANCOMYCIN 1GM/200ML 200 ML IV ONE (00:02)
[2024-03-09 00:10] LABS: Aspartate Aminotransferase 1004 U/L (13-40)
[2024-03-09] MEDS: IPRATROPIUM BROM 0.5 MG/2.5ML INH SOL NEB SCH (02:21)
[2024-03-09] MEDS: ALBUTEROL SULF 2.5 MG/0.5ML(0.5%) NEB SOLN NEB SCH (02:21)
[2024-03-09 04:12] LABS: Basophils # (auto) 0.1 10 ^3/uL (0-0.2); Basophils % (auto) 0.4 % (0.0-2.0); Eosinophils # (auto) 0 10 ^3/uL (0-0.8); Eosinophils % (auto) 0.3 % (0.0-7.0); Hematocrit 31.5 % (36.0-46.0); Hemoglobin 10.7 g/dL (12.2-16.2); Lymphocytes # (auto) 2.5 10 ^3/uL (0.4-5.4); Lymphocytes % (auto) 18.2 % (10.0-50.0); Mean Corpuscular Hemoglobin 33.2 pg (28.0-32.0); Mean Corpuscular Hgb Conc. 33.9 g/dL (32.0-36.0); Mean Corpuscular Volume 97.9 fL (80.0-100.0); Monocytes # (auto) 0.5 10 ^3/uL (0-1.3); Monocytes % (auto) 3.7 % (0.0-12.0); Neutrophils # (auto) 10.5 10 ^3/uL (1.6-8.6); Neutrophils % (auto) 77.4 % (37.0-80.0); Nucleated Red Blood Cells % 0.2 %; Platelet Count (auto) 123 10^3/uL (140-450); Red Blood Cells 3.22 10^6/uL (4.0-5.20); White Blood Cell 13.5 10^3/uL (4.4-10.8)
[2024-03-09 04:30] LABS: Alanine Aminotransferase 459 U/L (7-40); Alkaline Phosphatase 97 U/L (46-116); Anion Gap 5 (5-15); BUN/Creatinine Ratio 7.5 (10.0-20.0); Blood Urea Nitrogen 14 mg/dL (9-23); Calcium 6.8 mg/dL (8.7-10.4); Carbon Dioxide 22 mmol/L (20-30); Chloride 110 mmol/L (98-107); Glucose 98 mg/dL (74-106); Potassium 4.2 mmol/L (3.5-5.1); Sodium 137 mmol/L (136-145)
[2024-03-09 04:31] LABS: Albumin 2.9 g/dL (3.2-4.8); Aspartate Aminotransferase 817 U/L (13-40)
[2024-03-09 04:32] LABS: Bilirubin, Total 0.3 mg/dL (0.2-1.0); Total Protein 4.8 g/dL (5.7-8.2)
[2024-03-09] MEDS ORDERED: MEROPENEM 1GM IVPB 50 ML IV SCH (06:00)
[2024-03-09] MEDS: ENOXAPARIN SOD 40 MG/0.4 ML SYRINGE SC SCH (10:00)
[2024-03-09] MEDS: PANTOPRAZOLE 40 MG/10 ML VIAL INJ IV SCH (10:56)
[2024-03-09] MEDS ORDERED: LISI20TA56 PO (11:26)
[2024-03-09] MEDS ORDERED: DILT-29 PO (11:26)
[2024-03-09] MEDS ORDERED: SOLI5TAB42 PO (11:26)
[2024-03-09] MEDS ORDERED: BUDE1AER6 IN (11:26)
[2024-03-10] VITALS (111 sets, daily range): BP systolic 70–131; BP diastolic 23–64; PULSE 75–100; RESP 13–24; TEMP 96.8–98.4; O2SAT 93–100
[2024-03-10 05:30] LABS: Basophils # (auto) 0 10 ^3/uL (0-0.2); Eosinophils # (auto) 0.1 10 ^3/uL (0-0.8); Hemoglobin 10.3 g/dL (12.2-16.2); Lymphocytes # (auto) 1.3 10 ^3/uL (0.4-5.4); Mean Corpuscular Volume 98.8 fL (80.0-100.0); Monocytes # (auto) 0.5 10 ^3/uL (0-1.3); Neutrophils # (auto) 7.5 10 ^3/uL (1.6-8.6); White Blood Cell 9.4 10^3/uL (4.4-10.8)
[2024-03-10 05:32] LABS: Basophils % (auto) 0.4 % (0.0-2.0); Eosinophils % (auto) 1.1 % (0.0-7.0); Hematocrit 29.6 % (36.0-46.0); Mean Corpuscular Hemoglobin 34.4 pg (28.0-32.0); Mean Corpuscular Hgb Conc. 34.8 g/dL (32.0-36.0); Monocytes % (auto) 5.2 % (0.0-12.0); Neutrophils % (auto) 79.3 % (37.0-80.0); Nucleated Red Blood Cells % 0.1 %; Platelet Count (auto) 99 10^3/uL (140-450); Red Blood Cells 2.99 10^6/uL (4.0-5.20); Red Cell Distribution Width 14.3 % (11.8-14.3)
[2024-03-10 05:48] LABS: Alanine Aminotransferase 328 U/L (7-40); Albumin 2.8 g/dL (3.2-4.8); Alkaline Phosphatase 98 U/L (46-116); Anion Gap 7 (5-15); Aspartate Aminotransferase 250 U/L (13-40); BUN/Creatinine Ratio 12.5 (10.0-20.0); Blood Urea Nitrogen 18 mg/dL (9-23); Calcium 7.4 mg/dL (8.7-10.4); Carbon Dioxide 20 mmol/L (20-30); Chloride 114 mmol/L (98-107); Glucose 90 mg/dL (74-106); Potassium 3.9 mmol/L (3.5-5.1); Sodium 141 mmol/L (136-145); Uric Acid 4.3 mg/dL (3.1-7.8)
[2024-03-10 05:49] LABS: Bilirubin, Total 0.4 mg/dL (0.2-1.0); Creatine Kinase IFCC 90 U/L (34-145); Phosphorus 3.5 mg/dL (2.4-5.1); Total Protein 4.8 g/dL (5.7-8.2)
[2024-03-10 08:49] LABS: Base Excess -6.7 mmol/L (-2.0-3.0)
[2024-03-10] MEDS: VANCOMYCIN 1GM/200ML 200 ML IV ONE (10:43)
[2024-03-10 13:26] LABS: Protein, Urine 99.5 mg/dL (0.0-11.9)
[2024-03-10 13:28] LABS: Amphetamine Screen, Urine Neg (NEGATIVE); Barbiturate Scree,Urine Neg (NEGATIVE); Benzodiazephine Screen, Urine Pos (NEGATIVE); Cannabinoid Screen, Urine Neg (NEGATIVE); Cocaine Screen, Urine Neg (NEGATIVE); Opiate Scree,Urine Neg (NEGATIVE); Phencyclidine Screen, Urine Neg (NEGATIVE)
[2024-03-10 13:29] LABS: Creatinine, Urine 116.64 mg/dL (30.0-125.0)
[2024-03-10 13:35] LABS: Urine Bacteria FEW /hpf (None Seen); Urine Blood 3+ /uL (Negative); Urine Protein, UAD 1+ (Negative); Urine Specific Gravity 1.016 (1.001-1.035); Urine Urobilinogen Normal (Negative); Urine WBC 41 /hpf (0 - 5); Urine WBC Clumps PRESENT /hpf (None Seen)
[2024-03-10 13:37] LABS: Urine Clarity TURBID (Clear); Urine Color Yellow (Yellow)
[2024-03-10] MEDS: NOREPINEPHRINE 8 MG/250ML KIT 250 ML IV SCH (18:00)
[2024-03-11] VITALS (104 sets, daily range): BP systolic 93–159; BP diastolic 43–79; PULSE 68–100; RESP 18–24; TEMP 96.6–99; O2SAT 94–100
[2024-03-11 04:19] LABS: Basophils # (auto) 0 10 ^3/uL (0-0.2); Monocytes # (auto) 0.5 10 ^3/uL (0-1.3); Monocytes % (auto) 7.1 % (0.0-12.0); Neutrophils # (auto) 4.8 10 ^3/uL (1.6-8.6)
[2024-03-11 04:20] LABS: Basophils % (auto) 0.4 % (0.0-2.0); Eosinophils # (auto) 0.1 10 ^3/uL (0-0.8); Eosinophils % (auto) 2.2 % (0.0-7.0); Hematocrit 28.3 % (36.0-46.0); Hemoglobin 9.7 g/dL (12.2-16.2); Lymphocytes # (auto) 1.1 10 ^3/uL (0.4-5.4); Lymphocytes % (auto) 16.6 % (10.0-50.0); Mean Corpuscular Hgb Conc. 34.4 g/dL (32.0-36.0); Mean Corpuscular Volume 98.8 fL (80.0-100.0); Neutrophils % (auto) 73.7 % (37.0-80.0); Nucleated Red Blood Cells % 0.1 %; Red Blood Cells 2.86 10^6/uL (4.0-5.20); White Blood Cell 6.4 10^3/uL (4.4-10.8)
[2024-03-11 04:27] LABS: Alanine Aminotransferase 226 U/L (7-40); Albumin 2.5 g/dL (3.2-4.8); Alkaline Phosphatase 91 U/L (46-116); Anion Gap 6 (5-15); Aspartate Aminotransferase 110 U/L (13-40); BUN/Creatinine Ratio 13.9 (10.0-20.0); Bilirubin, Total 0.4 mg/dL (0.2-1.0); Blood Urea Nitrogen 16 mg/dL (9-23); Calcium 7.8 mg/dL (8.7-10.4); Carbon Dioxide 19 mmol/L (20-30); Chloride 118 mmol/L (98-107); Glucose 86 mg/dL (74-106); Potassium 3.4 mmol/L (3.5-5.1); Sodium 143 mmol/L (136-145); Total Protein 4.3 g/dL (5.7-8.2)
[2024-03-11 05:23] LABS: Platelet Count (auto) 122 10^3/uL (140-450)
[2024-03-11 05:24] LABS: Large Platelets FEW; Platelet Estimate Decrea
[2024-03-11 07:29] LABS: Base Excess -8.6 mmol/L (-2.0-3.0)
[2024-03-11] MEDS: POTASSIUM CHL 20MEQ/100ML 100 ML IV ONE (10:10)
[2024-03-11] MEDS: NOREPINEPHRINE 8 MG/250ML KIT 250 ML IV SCH (10:45)
[2024-03-11] MEDS: methylPREDNISolone SOD SUCC 125 MG/2 ML VL IV ONE (10:55)
[2024-03-11] MEDS: MIDODRINE HCL 10 MG TAB PO SCH (12:21)
[2024-03-11] MEDS: Glucerna 1.2 Cal 1Liter BOTTLE GT SCH (17:06)
[2024-03-11] MEDS: methylPREDNISolone SOD SUCC 125 MG/2 ML VL IV SCH (21:39)
[2024-03-12] VITALS (109 sets, daily range): BP systolic 99–171; BP diastolic 49–82; PULSE 88–118; RESP 15–34; TEMP 93.4–99.1; O2SAT 93–100
[2024-03-12 04:04] LABS: Basophils # (auto) 0 10 ^3/uL (0-0.2); Basophils % (auto) 0.1 % (0.0-2.0); Eosinophils # (auto) 0 10 ^3/uL (0-0.8); Lymphocytes # (auto) 0.2 10 ^3/uL (0.4-5.4); Mean Corpuscular Volume 99.3 fL (80.0-100.0); Monocytes # (auto) 0.1 10 ^3/uL (0-1.3); Neutrophils # (auto) 3.9 10 ^3/uL (1.6-8.6); White Blood Cell 4.3 10^3/uL (4.4-10.8)
[2024-03-12 04:09] LABS: Hematocrit 31.4 % (36.0-46.0); Hemoglobin 10.9 g/dL (12.2-16.2); Lymphocytes % (auto) 5.2 % (10.0-50.0); Mean Corpuscular Hemoglobin 34.3 pg (28.0-32.0); Mean Corpuscular Hgb Conc. 34.5 g/dL (32.0-36.0); Monocytes % (auto) 2.1 % (0.0-12.0); Neutrophils % (auto) 92.6 % (37.0-80.0); Nucleated Red Blood Cells % 0.1 %; Red Blood Cells 3.16 10^6/uL (4.0-5.20); Red Cell Distribution Width 14.8 % (11.8-14.3)
[2024-03-12 04:28] LABS: Alanine Aminotransferase 185 U/L (7-40); Albumin 2.7 g/dL (3.2-4.8); Alkaline Phosphatase 96 U/L (46-116); Anion Gap 7 (5-15); Aspartate Aminotransferase 56 U/L (13-40); BUN/Creatinine Ratio 15.5 (10.0-20.0); Bilirubin, Total 0.3 mg/dL (0.2-1.0); Blood Urea Nitrogen 15 mg/dL (9-23); Calcium 8.4 mg/dL (8.7-10.4); Carbon Dioxide 17 mmol/L (20-30); Chloride 119 mmol/L (98-107); Glucose 122 mg/dL (74-106); Potassium 3.9 mmol/L (3.5-5.1); Sodium 143 mmol/L (136-145); Total Protein 4.8 g/dL (5.7-8.2)
[2024-03-12 05:21] LABS: Platelet Count (auto) 66 10^3/uL (140-450)
[2024-03-12 05:22] LABS: Platelet Estimate Decreased
[2024-03-12 06:55] LABS: Base Excess -8.5 mmol/L (-2.0-3.0)
[2024-03-12] MEDS: LACTATED RINGER'S 1,000 ML IV SCH (11:27)
[2024-03-12] MEDS: MEROPENEM 1GM IVPB 50 ML IV SCH (11:28)
[2024-03-12] MEDS: VANCOMYCIN 1GM/200ML 200 ML IV ONE (11:28)
[2024-03-12 11:35] LABS: INR 1.06 (0.9-1.15); Partial Thromboplastin Time 36.1 SEC (24.5-34.5); Prothrombin Time 11.2 sec (9.3-11.8)
[2024-03-12 14:26] LABS: Base Excess -7.6 mmol/L (-2.0-3.0)
[2024-03-12] MEDS: hydrALAZINE HCL 20 MG/ML VL IV PRN (22:57)
[2024-03-13] VITALS (104 sets, daily range): BP systolic 98–216; BP diastolic 46–128; PULSE 88–149; RESP 12–37; TEMP 97.6–98.2; O2SAT 95–100
[2024-03-13] MEDS: MORPHINE SULFATE INJ 2 MG/ml SYRG IV PRN (00:54)
[2024-03-13 03:50] LABS: Basophils # (auto) 0 10 ^3/uL (0-0.2); Eosinophils # (auto) 0 10 ^3/uL (0-0.8); Hematocrit 31.5 % (36.0-46.0); Hemoglobin 10.6 g/dL (12.2-16.2); Lymphocytes # (auto) 0.3 10 ^3/uL (0.4-5.4); Lymphocytes % (auto) 3.5 % (10.0-50.0); Mean Corpuscular Hemoglobin 33.7 pg (28.0-32.0); Mean Corpuscular Hgb Conc. 33.7 g/dL (32.0-36.0); Mean Corpuscular Volume 99.8 fL (80.0-100.0); Monocytes # (auto) 0.3 10 ^3/uL (0-1.3); Monocytes % (auto) 3.9 % (0.0-12.0); Neutrophils # (auto) 8.1 10 ^3/uL (1.6-8.6); Neutrophils % (auto) 92.6 % (37.0-80.0); Nucleated Red Blood Cells % 0.1 %; Platelet Count (auto) 77 10^3/uL (140-450); Red Blood Cells 3.16 10^6/uL (4.0-5.20); Red Cell Distribution Width 14.9 % (11.8-14.3); White Blood Cell 8.8 10^3/uL (4.4-10.8)
[2024-03-13 04:10] LABS: Alanine Aminotransferase 133 U/L (7-40); Albumin 2.7 g/dL (3.2-4.8); Alkaline Phosphatase 84 U/L (46-116); Anion Gap 9 (5-15); Aspartate Aminotransferase 27 U/L (13-40); BUN/Creatinine Ratio 18.4 (10.0-20.0); Bilirubin, Total 0.3 mg/dL (0.2-1.0); Blood Urea Nitrogen 19 mg/dL (9-23); Calcium 8.8 mg/dL (8.7-10.4); Carbon Dioxide 17 mmol/L (20-30); Chloride 119 mmol/L (98-107); Glucose 105 mg/dL (74-106); Potassium 3.7 mmol/L (3.5-5.1); Sodium 145 mmol/L (136-145); Total Protein 4.7 g/dL (5.7-8.2)
[2024-03-13 07:05] LABS: Base Excess -6.2 mmol/L (-2.0-3.0)
[2024-03-13] MEDS: METOPROLOL TARTRATE 1MG/1ML-5ML VIAL IV PRN (09:36)
[2024-03-13] MEDS: MAGNESIUM SULFATE 1GM/100ML 100 ML IV SCH (10:23)
[2024-03-13] MEDS: LACTATED RINGER'S 1,000 ML IV SCH (11:15)
[2024-03-13] MEDS: FUROSEMIDE 40 MG/4 ML VIAL IV ONE (14:51)
[2024-03-13] MEDS: VANCOMYCIN 750mg/150ml 150 ML IV ONE (14:51)
[2024-03-14] VITALS (105 sets, daily range): BP systolic 120–200; BP diastolic 59–130; PULSE 73–147; RESP 12–33; TEMP 95.7–98.6; O2SAT 94–100
[2024-03-14] MEDS: LABETALOL HCL 20 MG/4 ML VL IV PRN ×2 (01:00→14:43)
[2024-03-14 03:54] LABS: Basophils # (auto) 0 10 ^3/uL (0-0.2); Basophils % (auto) 0.1 % (0.0-2.0); Eosinophils # (auto) 0 10 ^3/uL (0-0.8); Hematocrit 33.9 % (36.0-46.0); Hemoglobin 11.4 g/dL (12.2-16.2); Lymphocytes # (auto) 0.4 10 ^3/uL (0.4-5.4); Lymphocytes % (auto) 5.5 % (10.0-50.0); Mean Corpuscular Hemoglobin 33.4 pg (28.0-32.0); Mean Corpuscular Hgb Conc. 33.7 g/dL (32.0-36.0); Mean Corpuscular Volume 98.9 fL (80.0-100.0); Monocytes # (auto) 0.3 10 ^3/uL (0-1.3); Monocytes % (auto) 4.9 % (0.0-12.0); Neutrophils # (auto) 6.3 10 ^3/uL (1.6-8.6); Neutrophils % (auto) 89.5 % (37.0-80.0); Nucleated Red Blood Cells % 0.2 %; Platelet Count (auto) 67 10^3/uL (140-450); Red Blood Cells 3.43 10^6/uL (4.0-5.20); Red Cell Distribution Width 15.4 % (11.8-14.3); White Blood Cell 7.1 10^3/uL (4.4-10.8)
[2024-03-14 04:07] LABS: Alanine Aminotransferase 110 U/L (7-40); Albumin 2.9 g/dL (3.2-4.8); Alkaline Phosphatase 92 U/L (46-116); Anion Gap 6 (5-15); Aspartate Aminotransferase 24 U/L (13-40); BUN/Creatinine Ratio 22.1 (10.0-20.0); Bilirubin, Total 0.3 mg/dL (0.2-1.0); Blood Urea Nitrogen 23 mg/dL (9-23); Calcium 8.9 mg/dL (8.7-10.4); Carbon Dioxide 21 mmol/L (20-30); Chloride 118 mmol/L (98-107); Glucose 149 mg/dL (74-106); Potassium 3.6 mmol/L (3.5-5.1); Sodium 145 mmol/L (136-145); Total Protein 4.8 g/dL (5.7-8.2)
[2024-03-14] MEDS: hydrALAZINE HCL 20 MG/ML VL IV ONE (04:21)
[2024-03-14] MEDS: hydrALAZINE HCL 20 MG/ML VL ONE (04:22)
[2024-03-14 06:49] LABS: Base Excess -4.8 mmol/L (-2.0-3.0)
[2024-03-14] MEDS: FUROSEMIDE 40 MG/4 ML VIAL IV SCH (09:57)
[2024-03-14] MEDS: LORazepam 2MG/ML-1ML VIAL IV ONE (10:45)
[2024-03-14] MEDS: VANCOMYCIN 750mg/150ml 150 ML IV ONE (14:00)
[2024-03-14 14:24] LABS: Base Excess -3.7 mmol/L (-2.0-3.0)
[2024-03-14] MEDS ORDERED: Pivot 1.5 Cal One Liter GT SCH (18:30)
[2024-03-14] MEDS: hydrALAZINE HCL 20 MG/ML VL IV PRN (22:27)
[2024-03-15] VITALS (103 sets, daily range): BP systolic 80–185; BP diastolic 38–118; PULSE 77–125; RESP 18–37; TEMP 95.5–98.4; O2SAT 92–100
[2024-03-15 04:39] LABS: Basophils # (auto) 0 10 ^3/uL (0-0.2); Basophils % (auto) 0.1 % (0.0-2.0); Eosinophils # (auto) 0 10 ^3/uL (0-0.8); Hematocrit 33.4 % (36.0-46.0); Hemoglobin 11.3 g/dL (12.2-16.2); Lymphocytes # (auto) 0.3 10 ^3/uL (0.4-5.4); Lymphocytes % (auto) 2.8 % (10.0-50.0); Mean Corpuscular Hemoglobin 33.3 pg (28.0-32.0); Mean Corpuscular Hgb Conc. 33.9 g/dL (32.0-36.0); Mean Corpuscular Volume 98.3 fL (80.0-100.0); Monocytes # (auto) 0.7 10 ^3/uL (0-1.3); Monocytes % (auto) 5.4 % (0.0-12.0); Neutrophils # (auto) 11.2 10 ^3/uL (1.6-8.6); Neutrophils % (auto) 91.7 % (37.0-80.0); Nucleated Red Blood Cells % 0.2 %; Platelet Count (auto) 73 10^3/uL (140-450); Red Cell Distribution Width 15.1 % (11.8-14.3); White Blood Cell 12.2 10^3/uL (4.4-10.8)
[2024-03-15 05:01] LABS: Alanine Aminotransferase 81 U/L (7-40); Albumin 2.9 g/dL (3.2-4.8); Alkaline Phosphatase 78 U/L (46-116); Anion Gap 8 (5-15); Aspartate Aminotransferase 20 U/L (13-40); BUN/Creatinine Ratio 28.4 (10.0-20.0); Bilirubin, Total 0.5 mg/dL (0.2-1.0); Blood Urea Nitrogen 27 mg/dL (9-23); Calcium 9.2 mg/dL (8.7-10.4); Carbon Dioxide 23 mmol/L (20-30); Chloride 116 mmol/L (98-107); Glucose 111 mg/dL (74-106); Potassium 3.5 mmol/L (3.5-5.1); Sodium 147 mmol/L (136-145); Total Protein 4.7 g/dL (5.7-8.2)
[2024-03-15 06:55] LABS: Base Excess -4.5 mmol/L (-2.0-3.0)
[2024-03-15] MEDS: LORazepam 2MG/ML-1ML VIAL IV ONE (15:24)
[2024-03-15 17:32] LABS: INR 1.19 (0.9-1.15); Partial Thromboplastin Time 24.1 SEC (24.5-34.5); Prothrombin Time 12.5 sec (9.3-11.8)
[2024-03-15] MEDS: FREE WATER GT SCH (18:20)
[2024-03-15] MEDS ORDERED: dilTIAZem 25 MG/5 ML VIAL IV PRN ×2 (19:30→21:00)
[2024-03-15] MEDS: METOPROLOL TARTRATE 25 MG TAB PO SCH (22:00)
[2024-03-16] VITALS (70 sets, daily range): BP systolic 89–164; BP diastolic 40–82; PULSE 82–110; RESP 25–27; TEMP 98.1–99; O2SAT 93–100
[2024-03-16 04:23] LABS: Basophils # (auto) 0 10 ^3/uL (0-0.2); Eosinophils # (auto) 0 10 ^3/uL (0-0.8); Lymphocytes # (auto) 0.3 10 ^3/uL (0.4-5.4); Monocytes # (auto) 0.4 10 ^3/uL (0-1.3); Monocytes % (auto) 3.6 % (0.0-12.0); Platelet Count (auto) 64 10^3/uL (140-450)
[2024-03-16 04:30] LABS: Basophils % (auto) 0.1 % (0.0-2.0); Hematocrit 29.2 % (36.0-46.0); Lymphocytes % (auto) 2.8 % (10.0-50.0); Mean Corpuscular Hemoglobin 33.7 pg (28.0-32.0); Mean Corpuscular Hgb Conc. 34.4 g/dL (32.0-36.0); Neutrophils # (auto) 9.9 10 ^3/uL (1.6-8.6); Neutrophils % (auto) 93.5 % (37.0-80.0); Nucleated Red Blood Cells % 0.2 %; Red Blood Cells 2.98 10^6/uL (4.0-5.20); Red Cell Distribution Width 15.1 % (11.8-14.3); White Blood Cell 10.5 10^3/uL (4.4-10.8)
[2024-03-16 04:45] LABS: Alanine Aminotransferase 54 U/L (7-40); Albumin 2.7 g/dL (3.2-4.8); Alkaline Phosphatase 66 U/L (46-116); Anion Gap 6 (5-15); Aspartate Aminotransferase 16 U/L (13-40); BUN/Creatinine Ratio 30.8 (10.0-20.0); Bilirubin, Total 0.4 mg/dL (0.2-1.0); Blood Urea Nitrogen 32 mg/dL (9-23); Calcium 8.6 mg/dL (8.7-10.4); Carbon Dioxide 25 mmol/L (20-30); Chloride 116 mmol/L (98-107); Glucose 142 mg/dL (74-106); Potassium 3.9 mmol/L (3.5-5.1); Sodium 147 mmol/L (136-145); Total Protein 4.5 g/dL (5.7-8.2)
[2024-03-16 06:45] LABS: Base Excess 0.2 mmol/L (-2.0-3.0)
[2024-03-16] MEDS: LIDOCAINE 1% (LOCAL ANESTH.) PF 5ml SDV ID ONE (10:00)
[2024-03-16] MEDS: SODIUM CHLOR 0.9% PF (SALINE LOCK) 10ML VIAL/SYR IV SCH (11:02)
[2024-03-16] MEDS: VANCOMYCIN 750mg/150ml 150 ML IV ONE (11:59)
== END 2024-03-16 15:25 | disposition short-term general hospital (02) | DRG 870 ==
LOC: EDBD 09:39 → ER 09:39 → EDUNIT# 09:39 → TELE 23:20 → ICU WEST 03-09 01:02
PROVIDERS: ADMIT Hospitalist; ATTEND Student in an Organized Health Care Education/Training Program
PROC: 5A1955Z Respiratory Ventilation, Greater than 96 Consecutive Hours (ICD-10-PCS; principal; 2024-03-08)
PROC: 0BH17EZ Insertion of Endotracheal Airway into Trachea, Via Natural or Artificial Opening (ICD-10-PCS; 2024-03-08)
PROC: 06HY33Z Insertion of Infusion Device into Lower Vein, Percutaneous Approach (ICD-10-PCS; 2024-03-08)
PROC: 05HY33Z Insertion of Infusion Device into Upper Vein, Percutaneous Approach (ICD-10-PCS; 2024-03-16)
PROC: B54MZZA Ultrasonography of Right Upper Extremity Veins, Guidance (ICD-10-PCS; 2024-03-16)
DX: A41.9 Sepsis, unspecified organism (principal); N17.0 Acute kidney failure with tubular necrosis; R65.21 Severe sepsis with septic shock; J96.21 Acute and chronic respiratory failure with hypoxia; G92.8 Other toxic encephalopathy; J15.69 Pneumonia due to other Gram-negative bacteria; J15.9 Unspecified bacterial pneumonia; E87.4 Mixed disorder of acid-base balance; M48.54XA Collapsed vertebra, not elsewhere classified, thoracic region, initial encounter for fracture; G93.1 Anoxic brain damage, not elsewhere classified; R00.1 Bradycardia, unspecified; D69.6 Thrombocytopenia, unspecified; R74.01 Elevation of levels of liver transaminase levels; R74.8 Abnormal levels of other serum enzymes; Y90.9 Presence of alcohol in blood, level not specified; E78.5 Hyperlipidemia, unspecified; F32.A Depression, unspecified; E87.5 Hyperkalemia; I12.9 Hypertensive chronic kidney disease with stage 1 through stage 4 chronic kidney disease, or unspecified chronic kidney disease; R79.89 Other specified abnormal findings of blood chemistry; J43.2 Centrilobular emphysema; F03.90 Unspecified dementia, unspecified severity, without behavioral disturbance, psychotic disturbance, mood disturbance, and anxiety; I67.1 Cerebral aneurysm, nonruptured; E87.70 Fluid overload, unspecified; E87.8 Other disorders of electrolyte and fluid balance, not elsewhere classified; N18.30 Chronic kidney disease, stage 3 unspecified; Z88.0 Allergy status to penicillin; Z79.899 Other long term (current) drug therapy; Z79.1 Long term (current) use of non-steroidal anti-inflammatories (NSAID); Z87.891 Personal history of nicotine dependence; Z90.710 Acquired absence of both cervix and uterus; Z85.118 Personal history of other malignant neoplasm of bronchus and lung; Z92.3 Personal history of irradiation
CPT/HCPCS: 31500; 36415; 36556; 36569; 36600; 70450; 70545; 70551; 71045; 71250; 80053; 80202; 80307; 80329; 81001; 82550; 82570; 82805; 83605; 83735; 84100; 84156; 84300; 84443; 84484; 84550; 85007; 85025; 85027; 85362; 85379; 85384; 85610; 85730; 87040; 87070; 87081; 87086; 87205; 93005; 93306; 93970; 94002; 94003; 94640; 95819; G0378; J2185; J2250; J2405; J2470; J2704; J3480; J7060